=== PATIENT | female | born 1980 | race Caucasian/White ===

== ENCOUNTER 2021-06-30 21:11 | Emergency (ER) | payer SELFPAY ==
[2021-06-30 21:16] VITALS: BP 117/78; PULSE 106; RESP 16; TEMP 36.4; O2SAT 98
--- NOTE | 2021-06-30 21:16 | ED.GENADUL_ITS ---
Discharge Plan Disposition Patient Disposition: HOME Condition: Improving Discharge Details Clinical Impression: Diarrhea, Dehydration Primary Care Provider: Unknown,Unknown ED Provider: Santhosh Rivera [place] Meds and New Rx's Prescriptions: Continued levothyroxine 88 mcg Tablet 88 mcg PO DAILY RF: 0 lorazepam 0.5 mg Tablet 0.5 mg PO BID RF: 0 fluoxetine [Prozac] 40 mg Capsule 80 mg PO DAILY RF: 0 ondansetron HCl [Zofran] 4 mg Tablet 4 mg PO PRN PRNRF: 0 cholecalciferol (vitamin D3) [Vitamin D3] 50 mcg (2,000 unit) Capsule 2,000 unit PO DAILY RF: 0 Discharge Instructions Instructions: Dehydration (ED), Acute Diarrhea (ED) Additional Instructions: Home to rest. Fluids to stay hydrated. Follow-up with PCP when you return home if not doing better. Return to ED for bloody diarrhea, worsening abdominal pain, vomiting, other concerns Medical Decision Making Patient presenting with abdominal cramping and diarrhea with associated general weakness, dehydration. She denies fever, vomiting, bloody stool. She denies any ill contacts. She is visiting from [place] and staying some [facility]. She is fully vaccinated against Covid. IV established and 2 L of LR ordered. Laboratory studies ordered. Basic labs unremarkable. Patient without diarrhea here. She received 2 L of LR and feels remarkably better and is requesting discharge. She can follow-up with primary care when she returns home if not doing better. Otherwise return to ED for bloody diarrhea, worsening abdominal pain, vomiting. Lab Data Lab results reviewed: Yes I reviewed the patient's lab results. HPI General Mode of arrival: wheelchair . Date/Time Provider Initiated Documentation: 06/30/21 21:16 . Limitations to Documentation: no limitations . Information obtained by: patient and RN notes reviewed . HPI Narrative: Patient presents to ED with generalized weakness, diarrhea, nausea, abdominal cramping. Patient has had symptoms for about a day. She is on vacation up here from [place]. She is fully vaccinated. Reports family and her had been ill last week with URI type symptoms. She tested negative for Covid. Her symptoms have completely resolved. She denies headache, fever, shortness of breath, chest pain. She has no vomiting. She has no bloody diarrhea but has copious amounts of green diarrhea. [place] staying [place] the [place] No one else is ill. She is generally well w ith just history of hypothyroidism. Related Data Home Medications Medication Instructions Recorded Confirmed cholecalciferol (vitamin D3) 2,000 unit PO DAILY 06/30/21 06/30/21 [Vitamin D3] fluoxetine [Prozac] 80 mg PO DAILY 06/30/21 06/30/21 levothyroxine 88 mcg PO DAILY 06/30/21 06/30/21 lorazepam 0.5 mg PO BID 06/30/21 06/30/21 ondansetron HCl [Zofran] 4 mg PO PRN PRN 06/30/21 06/30/21 Allergies Allergy/AdvReac Type Severity Reaction Status Date / Time No Known Allergies Allergy Verified 06/30/21 21:22 Review of Systems Narrative: As documented in HPI otherwise negative as below. Const: no fever, chills Resp: no cough, SOB, pleuritic pain CV: no CP, diaphoresis, edema, syncope GI: no vomiting Neuro: no headache, numbness, focal weakness, confusion PFSH Medical History Anxiety Hypothyroid Surgical History H/O cardiac radiofrequency ablation History of section Social History Smoking/Tobacco Use Status: Never Smoking risk assessment performed?: Yes Alcohol Intake: current Alcohol Intake frequency: a few times a week Drug use: Never Substance use type: does not use Do you feel safe at home: Yes Do you feel safe in your relationship?: Yes Exam Narrative Exam Narrative: Const: WDWN female in NAD. HEENT: NC/AT. Normal facial exam. Eyes: Normal conjunctiva and sclera. Neck: Supple. Trachea midline. Lungs: Normal respiratory effort. Lungs are clear. Cor: RRR without murmur/gallop. Good radial pulses. GI: Soft. NT/ND. No guarding or rebound. Neuro: A+O x 3. Normal speech, mentation, gait. Cranial nerves II - XII grossly intact. No gross motor or sensory deficit. Ext: No C/C/E. Skin: Warm and dry without rash. A little pale, may be complexion.
[2021-06-30] MEDS: Lactated Ringers 2,000 ML 1000 ML IV (21:49)
[2021-06-30 21:56] LABS: Abs Immature Grans 0.03 10^3/uL (0.0-0.06); Absolute Basophil Count 0.03 10^3/uL (0.0-0.2); Absolute Eosinophil Count 0.25 10^3/uL (0.0-0.7); Absolute Lymphocyte Count 0.66 10^3/uL (1.2-3.4); Absolute Monocyte Count 0.45 10^3/uL (0.1-0.8); Absolute Neutrophil Count 5.03 10^3/uL (1.2-6.7); Basophils % 0.5; Eosinophils % 3.9; HCT 36.5 % (36.0-46.0); Immature Grans % 0.5; Lymphocytes % 10.2; MCH 25.1 pg (27.0-33.0); MCHC 30.1 % (32.0-36.0); MCV 83.3 fL (80-95); MPV 9.6 fL (8.0-11.0); Neutrophils % 77.9; Nucleated RBC 0 %; Platelet Count 277 10^3/uL (130-400); RBC 4.38 10^6/uL (3.93-5.22); RDW-SD 45.5 fL; WBC 6.45 10^3/uL (4.4-10.8)
[2021-06-30 22:08] LABS: Anion Gap 7.6 mmol/L (3-11); BUN 13 mg/dL (7-18); CO2 27.4 mmol/L (21.0-32.0); CREATININE 0.7 mg/dL (0.55-1.02); Calcium 8.7 mg/dL (8.5-10.1); Chloride 104 mmol/L (98-107); Glucose 94 mg/dL (74-106); Magnesium 2.1 mg/dL (1.8-2.4); Potassium 3.4 mmol/L (3.5-5.1); Sodium 139 mmol/L (136-145)
[2021-07-01 00:02] VITALS: BP 110/68; PULSE 64; RESP 18; TEMP 36.5; O2SAT 99
== END 2021-07-01 00:02 | disposition home or self-care (01) ==
PROVIDERS: Emergency Provider Emergency Medicine
DX: R19.7 Diarrhea, unspecified (principal); E86.0 Dehydration; R53.1 Weakness
CPT/HCPCS: 80048; 87505; 96360; 96361; 99284; 83630; 83735; 85025; 87177; 99283